=== PATIENT | female | born 1980 | race Caucasian/White ===

== ENCOUNTER 2017-02-01 20:29 | Emergency (ER) | payer OTHER ==
[~2017-02-01] VITALS: Ht 170.1 cm; Wt 70.3 kg
[~2017-02-01 20:29] MED LIST: ALBUTEROL0.09 MG/A2 IH; VICODIN 5/500 505 MG PO; ZITHROMAX Z PA250 MG PO
[2017-02-01 21:05] LABS: BILIRUBIN NEGATIVE (NEGATIVE); BLOOD 3+ (NEGATIVE); CLARITY SL CLOUDY (CLEAR); COLOR YELLOW (YELLOW); GLUCOSE NEGATIVE (NEGATIVE); KETONE TRACE (NEGATIVE); LEUKO ESTERASE 2+ (NEGATIVE); NITRITE NEGATIVE (NEGATIVE); PH 6.5 (5.0-9.0)
[2017-02-01 21:14] LABS: BACTERIA 1+; MUCOUS TRACE; WBC TNTC wbc/hpf (0-5)
[2017-02-01] MEDS ORDERED: PYRIDIUM200 M1 PO (21:30)
[2017-02-01] MEDS ORDERED: AMINOPHYLLIN200 MG PO (21:30)
== END 2017-02-01 21:36 | disposition home or self-care (01) ==
LOC: ED 20:29
PROVIDERS: Student in an Organized Health Care Education/Training Program
DX: N30.01 Acute cystitis with hematuria (principal); F17.200 Nicotine dependence, unspecified, uncomplicated; Z88.1 Allergy status to other antibiotic agents